=== PATIENT | male | born 2000 | race Two or more races ===

== ENCOUNTER 2024-04-04 15:09 | Emergency (ER) | payer SELFPAY ==
[2024-04-04 16:54] LABS: BASOPHILS PERCENT AUTO 0.3 % (0.0-1.0); EOSINOPHILS PERCENT AUTO 0.3 % (0.0-6.0); HEMATOCRIT 45.6 % (42.0-52.0); HEMOGLOBIN 15.5 gm/dl (14.0-18.0); IMMATURE GRAN ABSOLUTE AUTO 0.02 K/mm3 (0.00-0.05); IMMATURE GRAN PERCENT AUTO 0.3 % (0.0-0.4); LYMPHOCYTES ABSOLUTE AUTO 1.5 K/mm3 (1.0-4.8); LYMPHOCYTES PERCENT AUTO 19.2 % (24.0-44.0); MEAN CORPUSCULAR HEMOGLOBIN 28.2 pg (28.0-32.0); MEAN CORPUSCULAR VOLUME 82.9 fl (83.0-99.0); MEAN PLATELET VOLUME 9.3 fl (9.4-12.4); MONOCYTES ABSOLUTE AUTO 1.2 K/mm3 (0.0-0.8); MONOCYTES PERCENT AUTO 15.4 % (0.0-8.0); NEUTROPHILS PERCENT AUTO 64.5 % (41.0-71.0); PLATELET COUNT,PLT 246 K/mm3 (150-400); WHITE BLOOD CELL COUNT,WBC 7.72 K/mm3 (3.9-11.3)
[2024-04-04 17:06] LABS: ALBUMIN 3.9 g/dl (3.4-5.0); ANION GAP 11.5 (5-15); BILIRUBIN TOTAL 0.4 mg/dL (0.2-1.0); CALCIUM 9.1 mg/dL (8.5-10.1); CREATININE 1.1 mg/dL (0.7-1.3); EST CRCL DRUG DOSING (CG) 106.92 mL/min; POTASSIUM,K 3.5 mEq/L (3.5-5.1); PROTEIN TOTAL,TP 7.9 g/dl (6.4-8.2)
[2024-04-04] MEDS: Aspirin 81 MG Tab.Chew PO ONE (18:10)
[2024-04-04] MEDS: Heparin Sodium 5,000 Units/ML Vial IVPUSH ONE (18:38)
[2024-04-04] MEDS: Heparin Sodium/D5W 25,000 UNITS/500 ML BAG IV SCH (18:38)
== END 2024-04-04 19:55 ==
LOC: JD.ED 15:09
DX: I21.4 Non-ST elevation (NSTEMI) myocardial infarction (principal)
CPT/HCPCS: 36415; 71045; 80053; 84484; 85025; 93005; 96365; 99285; A9270; J1644